=== PATIENT | male | born 1940 | race Two or more races ===

== ENCOUNTER 2017-12-27 20:18 | Emergency (ER) | payer OTHER ==
[~2017-12-27] VITALS: Ht 157.5 cm; Wt 65.8 kg
[~2017-12-27 20:18] MED LIST: CARVEDILOL12.5 MG; CEFDINIR300 MG PO; LEVAQUIN750 MG PO; LOSARTAN-HCTZ1 EAC1; PREDNISONE20 MG PO; PROMETHAZINE-C120 ML PO; PROVENTIL3 ML/2.5 M IH
== END 2017-12-28 15:29 | disposition home or self-care (01) ==
LOC: ER 20:18
DX: J45.998 Other asthma (principal); I10 Essential (primary) hypertension; J44.9 Chronic obstructive pulmonary disease, unspecified; R09.02 Hypoxemia; J11.1 Influenza due to unidentified influenza virus with other respiratory manifestations

== ENCOUNTER 2022-06-12 10:31 | Inpatient (IN) | payer OTHER ==
[~2022-06-12] VITALS: Ht 157.5 cm; Wt 67.1 kg
[2022-06-12] MEDS ORDERED: SINGULAIR10 MG (10:43)
[2022-06-12] MEDS ORDERED: [UNRECOGNIZED DRUG - OTHER] (10:44)
--- NOTE | 2022-06-12 10:49 | NUR ---
PTE ALERTA Y ORIENTADO EN GUY JDAE ESFERAS, LLEGA AMBULANDO EN COMPANIA DE FAMILIAR Y REFIEREN PRESION ARTERIAL ELEVADA Y FALTA DE AIRE. AL MOMENTO B/P MANUAL 158/80 Y SATURANDO 97%. SE UBICA EN [place] DE ESPERA.
--- NOTE | 2022-06-12 12:12 | NUR ---
PTE EVALUADO POR DR ANDRE. SE ORIENTA PTE SOBRE TX LO CUAL REFIERE TNENDER. SE AMDINISTRA MEDICAMENTOS EGUN ORDEN MEDICA Y SE REALIZA DIANA DE MUESTRAS BAJO MEDIDAS ASEPTICAS.
--- NOTE | 2022-06-12 16:49 | NUR ---
SE RECIBE PACIENTE A UNIDAD DE CHEST PAIN UNIT. ESTA ALERTA Y ORIENTADO X3. EN H/P MANO DERECHA #20 Y MANO IZQUIERDA #22 JOSEPH DE EDEMA, INFILTRACION Y ENROJECIMIENTO. FERRARO COLOCADO A GRAVEDAD PRESENTANDO ORINA COLOR AGUA 1000 ML. CANULA NASAL A 3 L/MIN. SE COLOCA TRIDIL A 3ML/HR Y SE ORIENTA PACIENTE SOBRE LA UNIDAD Y MEHREEN REFIERE ENTENDER.
[2022-06-13] MEDS ORDERED: ALENDRONATE SOD70 MG (15:57)
[2022-06-13] MEDS ORDERED: ATORVASTATIN CA40 MG (15:57)
[2022-06-13] MEDS ORDERED: AZELASTINE137 MCG/0. (15:57)
[2022-06-13] MEDS ORDERED: CARVEDILOL12.5 M1 (16:00)
[2022-06-13] MEDS ORDERED: FLONASE16 GM (16:00)
[2022-06-13] MEDS ORDERED: VITAMIN D21250 MCG (16:00)
[2022-06-13] MEDS ORDERED: LOSARTAN POTAS100 MG (16:00)
[2022-06-13] MEDS ORDERED: BREO ELLIPTA I1 EACH (16:00)
[2022-06-13] MEDS ORDERED: HYDROCHLOROTHIA25 MG (16:00)
== END 2022-06-21 23:34 | disposition home or self-care (01) | DRG 202 ==
LOC: ER 10:31 → MEDI 19:57
PROVIDERS: ADMIT Internal Medicine; ATTEND Internal Medicine
PROC: B24BZZZ Ultrasonography of Heart with Aorta (ICD-10-PCS; principal; 2022-06-13)
PROC: 4A12X4Z Monitoring of Cardiac Electrical Activity, External Approach (ICD-10-PCS; 2022-06-13)
PROC: BW24ZZZ Computerized Tomography (CT Scan) of Chest and Abdomen (ICD-10-PCS; 2022-06-17)
DX: J20.9 Acute bronchitis, unspecified (principal); I50.33 Acute on chronic diastolic (congestive) heart failure; J44.0 Chronic obstructive pulmonary disease with (acute) lower respiratory infection; R09.02 Hypoxemia; R06.02 Shortness of breath; I16.0 Hypertensive urgency; I11.0 Hypertensive heart disease with heart failure

== ENCOUNTER 2025-02-13 09:56 | Emergency (ER) | payer OTHER ==
[~2025-02-13] VITALS: Ht 157.5 cm; Wt 68.0 kg
[~2025-02-13 09:56] MED LIST changes: +ALENDRONATE SOD70 MG; +ATORVASTATIN CA40 MG; +AZELASTINE137 MCG/0.; +BREO ELLIPTA I1 EACH; +CARVEDILOL12.5 M1; +FLONASE16 GM; +HYDROCHLOROTHIA25 MG; +LOSARTAN POTAS100 MG; +SINGULAIR10 MG; +VITAMIN D21250 MCG; +[UNRECOGNIZED DRUG - OTHER]
[2025-02-13 13:02] LABS: BASO % 0.8 % (0.1-1.2); EOS # 0.47 (0.04-0.54); EOS % 9.8 % (0.7-7.0); HEMATOCRIT 54.9 % (40.1-51.0); HEMOGLOBIN 18.3 g/dL (13.7-17.5); LYMPH % 24.9 % (19.3-53.1); MEAN CORPUSCULAR HEMOGLOBIN 27.8 pg (25.6-32.2); MONO # 0.58 (0.24-0.82); NEUT # 2.51 (1.56-6.13); NEUT % 52.1 % (34.0-71.1); PLATELET COUNT 210 K/uL (163-369); RED BLOOD COUNT 6.58 M/uL (4.63-6.08); RED CELL DISTRIBUTION WIDTH 14.5 % (11.6-14.4)
[2025-02-13 13:13] LABS: PH,URINE 5.5 (5.0-8.0); URINE APPEARANCE Clear; URINE BILIRRUBIN Negative (NEGATIVE); URINE BLOOD Negative; URINE COLOR Yellow; URINE KETONE Negative (NEGATIVE); URINE LEUKOCYTE Negative; URINE NITRATE Negative; URINE PROTEIN Negative (NEGATIVE); URINE UROBILINOGEN 0.2 E.U./dl
[2025-02-13 13:18] LABS: URINE BACTERIA 2.4 uL (0.0-1933); URINE EPITHELIAL CELLS 0.6 uL (0.0-38.8); URINE GLUCOSE >=1000 MG/DL (NEGATIVE); URINE RBC 0.7 uL (0.0-20.8); URINE WBC 1.4 uL (0.0-23.2)
== END 2025-02-13 16:17 | disposition home or self-care (01) ==
LOC: ER 10:38
PROVIDERS: Emergency Medicine
DX: R42 Dizziness and giddiness (principal); J45.909 Unspecified asthma, uncomplicated; E78.00 Pure hypercholesterolemia, unspecified; I10 Essential (primary) hypertension

== ENCOUNTER 2025-02-14 08:07 | Outpatient (CLI) | payer OTHER | END 2025-02-14 08:08 | disposition home or self-care (01) | LOC: NUCLEAR 08:07 | PROVIDERS: ATTEND Emergency Medicine | DX: R42 Dizziness and giddiness (principal) ==